=== PATIENT | male | born 1980 | race Caucasian/White ===

== ENCOUNTER 2020-01-10 08:36 | Emergency (ER) | payer SELFPAY ==
[2020-01-10 08:42] VITALS: BP 95/42; PULSE 68; RESP 18; TEMP 36.8; O2SAT 96; BMI 23.7
--- NOTE | 2020-01-10 08:54 | W.ED.BACK ---
HPI - Back Pain/Injury General: Chief Complaint: Back Pain/Injury Stated Complaint: back pain/back injury Time Seen by Provider: 01/10/20 08:38 Source: patient Mode of arrival: ambulatory Limitations: no limitations History of Present Illness: HPI Narrative: Patient is a 39-year-old male who presents to ED today with a complaint of lower back pain that began yesterday after he was carrying a heavy load of plywood and twisted while he was carrying it. He states pain does not seem to radiate down into his lower extremities. He normally does not suffer from chronic back pain. He is not having any urinary retention or bowel incontinence. MD elicited complaint: back pain Onset (ago): day(s) (yesterday) Timing: constant Severity: moderate Pain scale (0-10): 7 Location: lumbar spine Radiation: none Exacerbating factors: movement, walking, coughing/sneezing and lifting Relieving factors: none Associated symptoms: Reports no associated symptoms; Deny abdominal pain, difficulty walking, dysuria, nausea, syncope or vomiting Review of Systems Card: Denies: chest pain, palpitations, irregular heart rhythm, edema, lightheadedness, syncope, pre-syncope, dyspnea on exertion, orthopnea or leg pain with exertion Resp: Denies: dyspnea GI: Denies: abdominal pain, nausea or vomiting : Denies: flank pain, difficulty urinating or dysuria Musc: Reports: back pain; Denies: neck pain, extremity pain, extremity swelling, joint pain or joint swelling Neuro: Denies: headache(s), numbness in extremities, weakness in extremities, sensory changes or difficulty walking PFS ED PFSH: Social History Smoking and tobacco status: current every day smoker Physical Exam Const: COMMON NORMALS: patient oriented x3, no limitations, healthy appearing, alert and well nourished GENERAL APPEARANCE: in distress (appears uncomfortable ) HENMT: COMMON NORMALS: normocephalic and atraumatic HEAD & SCALP: normocephalic and atraumatic Neck/C-Spine: COMMON NORMALS: full ROM CERVICAL SPINE: No Cervical spine tenderness and No Paracervical muscle tenderness Resp: COMMON NORMALS: normal respiratory effort and clear to auscultation bilaterally AUSCULTATION: clear to auscultation bilaterally Cardio: COMMON NORMALS: regular rate and regular rhythm RATE: regular rate RHYTHM: regular rhythm Back/Pelvis: THORACIC SPINE/UPPER BACK: Yes normal to inspection and Yes thoracic ROM normal LUMBAR SPINE/LOWER BACK: Yes lumbar ROM normal, No lumbar spinal tenderness, Yes paraspinal muscle tenderness Lumbar paraspinal muscle tenderness: bilateral (mid to lower lumbar) and No paraspinal muscle spasm SACROILIAC JOINTS: Yes SI joints normal Extremity: COMMON NORMALS: normal to inspection and full ROM GENERAL: Yes normal exam except as noted Neuro: COMMON NORMALS: patient oriented x3, no focal motor deficits, no sensory deficits noted and gait normal SENSORIUM/ORIENTATION: Yes alert MOTOR EXAM: 5/5 motor strength present throughout Skin: COMMON NORMALS: no rashes or lesions noted GENERAL SKIN EXAM: no rashes or lesions noted Course Vital Signs: Vital signs: Vital Signs Temperature 98.2 F 01/10/20 08:42 Pulse Rate 68 01/10/20 08:42 Respiratory Rate 18 01/10/20 08:42 Blood Pressure 95/42 01/10/20 08:42 Pulse Oximetry 96 01/10/20 08:42 MDM - Back Pain/Injury MDM Narrative: Medical decision making narrative: pt reporting feeling much better after IM meds given here; no acute neurological deficits here to warrant emergent imaging; pt is stable for DC with PCP follow up in 1-2 wks for continued pain Discharge Plan Discharge Patient Disposition: Home, Self-Care Clinical Impression: Low back strain Qualifiers: Encounter type: initial encounter Qualified Code(s): S39.012A - Strain of muscle, fascia and tendon of lower back, initial encounter Condition: Stable Prescriptions: New cyclobenzaprine 10 mg tablet 10 mg PO TID Qty: 14 RF: 0 diclofenac sodium 50 mg tablet,delayed release (DR/EC) 50 mg PO Q12H PRN (Reason: pain) Qty: 20 RF: 0 methylprednisolone [Medrol (Vitor)] 4 mg tablets,dose pack See Rx Instructions .ROUTE .COMPLEX Qty: 21 RF: 0 Discharge Orders: Discharge Order (Routine); Ordered 01/10/20 Ordered By: Gerri Walker Discharge Diet: Usual diet Discharge Activity: Increase activity as tolerated Patient Instructions: Low Back Strain (ED) Activity Restrictions/Additional Instructions: Please follow up with primary care in 1-2 weeks for continued pain. Stand Alone Forms: Work/School Release Coding Level of Care Code ED Retail Special Event Associate for Chg Fwd Exam Comprehensive
[2020-01-10] MEDS: dexamethasone 10 mg/mL INJ 8 MG IM (09:09)
[2020-01-10] MEDS: ketorolac 60 mg/2 mL INJ IM (09:10)
[2020-01-10] MEDS: orphenadrine 30 mg/mL Inj 2 mL 60 MG IM (09:10)
[2020-01-10 09:54] VITALS: BP 104/55; PULSE 55; RESP 18; O2SAT 96
== END 2020-01-10 09:55 | disposition home or self-care (01) ==
PROVIDERS: Emergency Provider Physician Assistant; PCP Nurse Practitioner Family
DX: S39.012A Strain of muscle, fascia and tendon of lower back, initial encounter (principal); X50.0XXA Overexertion from strenuous movement or load, initial encounter; F17.210 Nicotine dependence, cigarettes, uncomplicated
CPT/HCPCS: 12345; 96372; 99281; 99283; J1100; J1885; J2360

== ENCOUNTER 2022-05-16 17:00 | Emergency (ER) | payer BC, MEDICAID, SELFPAY ==
[2022-05-16 17:33] VITALS: BP 125/73; PULSE 82; RESP 16; TEMP 36.8; O2SAT 96; BMI 23.1
--- NOTE | 2022-05-16 17:45 | XRR_ITS ---
PROCEDURE INFORMATION: Exam: XR Chest Exam date and time: 05/16/2022 5:56 PM Age: 41 years old Clinical indication: Cough TECHNIQUE: Imaging protocol: Radiologic exam of the chest. Views: 1 view. COMPARISON: CT abdomen pelvis w con* [id number] 07/29/2018 10:24 AM FINDINGS: Lungs: Scattered calcified granulomas in the right lung. No consolidation. Pleural spaces: Unremarkable. No pleural effusion. No pneumothorax. Heart/Mediastinum: Unremarkable. No cardiomegaly. Bones/joints: Unremarkable. XR/XR chest 1V portable [id number] IMPRESSION: No acute findings.
--- NOTE | 2022-05-16 18:02 | W.ED.SOB ---
HPI - SOB/Dyspnea General: Chief Complaint: Shortness of Breath/Dyspnea Stated Complaint: couching blood Time Seen by Provider: 05/16/22 17:45 History of Present Illness: HPI Narrative: Patient comes in today with complaints of persistent cough with congestion last 2 weeks.. Patient states some left lower lung discomfort. Patient also reports coughing up some blood. Patient reports diagnosed with COVID 2 weeks ago. Patient appears nontoxic. Patient appears in mild pain. Patient has a history of 2 episodes COVID and a case of pneumonia. Patient does smoke daily. Associated symptoms: Reports chest pain and hemoptysis; Deny abdominal pain or fever(s) Review of Systems Const: Denies: fever(s) Card: Reports: chest pain Resp: Reports: non-productive cough and hemoptysis GI: Denies: abdominal pain : Denies: difficulty urinating Skin/Breast: Reports: rash PFSH ED PFSH: Social History Smoking and tobacco status: current every day smoker Physical Exam Const: COMMON NORMALS: alert HENMT: COMMON NORMALS: normocephalic HEAD & SCALP: normocephalic Neck/C-Spine: COMMON NORMALS: full ROM Resp: COMMON NORMALS: normal respiratory effort AUSCULTATION: crackles Laterality: left (lower lung) Cardio: COMMON NORMALS: regular rate RATE: regular rate GI: COMMON NORMALS: non-tender Extremity: COMMON NORMALS: normal to inspection Neuro: SENSORIUM/ORIENTATION: Yes alert Skin: COMMON NORMALS: turgor normal GENERAL SKIN EXAM: turgor normal Course Vital Signs: Vital signs: Vital Signs Temperature 98.2 F 05/16/22 17:33 Pulse Rate 82 05/16/22 17:33 Respiratory Rate 16 05/16/22 17:33 Blood Pressure 125/73 05/16/22 17:33 Pulse Oximetry 96 05/16/22 17:33 Oxygen Delivery Me thod 05/16/22 17:33 MDM - SOB/Dyspnea Medical Decision Making 41-year-old male patient comes in today with cough, hemoptysis, left lower lung pain. Patient appears nontoxic. Lungs have some mild crackles in the left lower lung. Heart rates regular. Skin is warm and dry. Vital signs are normal. Differential diagnosis includes not limited to pneumonia, bronchitis, COVID-19. Chest x-ray was unremarkable. We will go ahead and treat patient for bronchitis secondary to COVID-19. This is been 2 weeks we will go ahead and cover with doxycycline 100 mg twice a day for 7 days. Patient will be started on a short course of dexamethasone along with antibiotic. Patient was also encouraged to stop smoking and to use albuterol inhaler as needed. Patient reported understanding and agreed to plan. Discharge Plan Discharge Patient Disposition: Home Clinical Impression: Acute bronchitis Condition: Stable Prescriptions: New doxycycline monohydrate 100 mg capsule 100 mg PO BID 7 Days Qty: 14 0RF dexamethasone 6 mg tablet 6 mg PO DAILY Qty: 7 0RF albuterol sulfate 90 mcg/actuation HFA aerosol inhaler 2 inh inhalation Q4H PRN (Reason: shortness of breath or wheezing) Qty: 8.5 0RF No Action cyclobenzaprine 10 mg tablet 10 mg PO TID Qty: 14 0RF diclofenac sodium 50 mg tablet,delayed release (DR/EC) 50 mg PO Q12H PRN (Reason: pain) Qty: 20 0RF Medrol (Vitor) 4 mg tablets,dose pack See Rx Instructions .ROUTE .COMPLEX Qty: 21 0RF Rx Instructions: orally per package directions Discharge Orders: Discharge ED (Routine); Ordered 05/16/22 Ordered By: Flavio Parks Patient Instructions: Acute Bronchitis (ED) Activity Restrictions/Additional Instructions: Drink plenty of water. Take antibiotics as directed. Use inhaler 2 puffs every 4 hours as needed for persistent coughing or shortness of breath. Take dexamethasone 6 mg daily for the next 7 days. Drink plenty of water with medication. Follow-up with primary care in 3 days for recheck. Return to ER for new concerns. Stand Alone Forms: Work/School Release Coding Level of Care Code ED Tentering Machine Off Bearer for Leonel Fwd Exam Comprehensive
[2022-05-16] MEDS: doxycycline 100 mg Tablet PO (18:12)
[2022-05-16] MEDS: dexamethasone 10 mg/mL INJ IM (18:16)
== END 2022-05-16 18:31 | disposition home or self-care (01) ==
PROVIDERS: Emergency Provider Nurse Practitioner Family
DX: J20.9 Acute bronchitis, unspecified (principal); F17.210 Nicotine dependence, cigarettes, uncomplicated
CPT/HCPCS: 71045; 96372; 99284; J1100

== ENCOUNTER 2022-05-24 10:26 | Emergency (ER) | payer BC, MEDICAID, SELFPAY ==
[2022-05-24 10:40] VITALS: BP 128/86; PULSE 75; RESP 20; TEMP 36.4; O2SAT 98; BMI 23.1
[2022-05-24 10:44] VITALS: BP 105/68; PULSE 78; RESP 18; TEMP 36.4; O2SAT 98
--- NOTE | 2022-05-24 11:09 | ECG_ITS ---
[facility] Test Date: 2022-05-24 Pat Name: Vineet Denton Department: Room: Gender: Male Premises Technician: : 1980 Requested By: Jaron Mcgee Order Number: [id number] Alon MD: Emily Ovalle M.D. Measurements Intervals [place] Rate: 71 P: 58 IN: 159 QRS: 87 QRSD: 82 T: 41 QT: 376 QTc: 409 Interpretive Statements SINUS RHYTHM Compared to ECG 07/29/2018 08:57:08 Sinus bradycardia no longer present Sinus arrhythmia no longer present Electronically Signed On 05-24-2022 17:10:12 CDT by Emily Ovalle M.D. [id number]
--- NOTE | 2022-05-24 11:09 | XRR_ITS ---
PROCEDURE INFORMATION: Exam: XR Chest Exam date and time: 05/24/2022 11:22 AM Age: 41 years old Clinical indication: Cough, dyspnea and shortness of breath. TECHNIQUE: Imaging protocol: Radiologic exam of the chest. Views: 1 view. COMPARISON: CR (CHEST, ) 05/16/2022 5:56 PM FINDINGS: Lungs: A calcified granuloma is noted at the right base. Mild scarring in the lung apices. No pulmonary consolidation. Pleural spaces: No pleural effusion. No pneumothorax. Heart/Mediastinum: The cardiac silhouette is unremarkable. No gross evidence of pneumomediastinum. Bones/joints: No gross fracture. XR/XR chest 1V portable [id number] IMPRESSION: No acute cardiopulmonary abnormality identified.
[2022-05-24 11:31] LABS: Basophils % 0.3 %; Eosinophils # 0.1 10^3/uL (0.0-0.8); Hemoglobin 14.8 g/dL (11.7-16.6); Lymphocytes # 1.7 10^3/uL (0.8-4.8); Lymphocytes % 24.4 %; Mean Corpuscular HGB Conc 34.4 g/dL (30.0-36.0); Mean Platelet Volume 9.7 fL (7.4-10.4); Monocytes # 0.4 10^3/uL (0.2-0.9); Monocytes % 5.5 %; Neutrophils # 4.71 10^3/uL (1.8-7.7); Neutrophils % 68.5 %; Nucleated Red Blood Cells % 0 %; Platelet Count 229 10^3/cmm (130-400); Red Blood Count 4.48 10^6/uL (4.1-5.3); Red Cell Distribution Width 12.4 % (12.1-15.1); White Blood Count 6.9 10^3/uL (4.0-10.0)
--- NOTE | 2022-05-24 11:48 | W.ED.SOB ---
HPI - SOB/Dyspnea General: Chief Complaint: Shortness of Breath/Dyspnea Stated Complaint: SOB, Chest Pain Source: patient Mode of arrival: ambulatory History of Present Illness: HPI Narrative: 41-year-old male presents emergency room complaining of shortness of breath and wheezing. He was recently diagnosed with COVID he seemed to resolve but is still having frequent cough and wheezing. No fever sweats or chills he has been on prednisone and inhalers recently ran out of inhalers and his symptoms worsen. He does smoke. MD elicited complaint: shortness of breath and cough Pertinent past history: sepsis Onset (ago): day(s) Timing: constant Severity: mild Exacerbating factors: exertion Relieving factors: rest Associated symptoms: Reports cough and fever(s); Deny abdominal pain, chest congestion, chest pain, diaphoresis, dizziness, extremity pain, hemoptysis, lightheadedness, myalgias, nausea, orthopnea, palpitations, paresthesias, polydipsia, polyuria, rash, sense of impending doom, syncope or vomiting Treatment prior to arrival: none Review of Systems Const: Reports: fever(s), chills and change in appetite; Denies: diaphoresis ENMT: Denies: throat pain, ear or mastoid pain, nasal discharge or nasal congestion Card: Denies: chest pain, palpitations, irregular heart rhythm, edema, swelling of feet/ankles, lightheadedness, syncope or orthopnea Resp: Reports: dyspnea, non-productive cough and wheezing; Denies: hemoptysis or chest congestion GI: Denies: abdominal pain, nausea or vomiting : Denies: flank pain, dysuria, urinary frequency or urinary urgency Musc: Denies: extremity pain Skin/Breast: Denies: rash or pruritus Neuro: Denies: dizziness Endo: Denies: polyuria or polydipsia PFSH ED PFSH: Social History Smoking and tobacco status: current every day smoker Physical Exam Const: GENERAL APPEARANCE: cooperative and comfortable ORIENTATION/CONSCIOUSNESS: Yes awake, Yes oriented to person, Yes oriented to place and Yes oriented to time HENMT: COMMON NORMALS: normocephalic, atraumatic and hearing grossly normal bilaterally HEAD & SCALP: normocephalic and atraumatic Resp: COMMON NORMALS: normal respiratory effort, No retractions, No use of accessory muscles and clear to auscultation bilaterally AUSCULTATION: clear to auscultation bilaterally Cardio: COMMON NORMALS: regular rate, regular rhythm and No murmurs present (Cardio) RATE: regular rate RHYTHM: regular rhythm GI: COMMON NORMALS: Soft to palpation and No hepatosplenomegaly present AUSCULTATION: Yes normoactive bowel sounds PALPATION: Yes Soft to palpation, No Tenderness to palpation present (GI), No Guarding due to palpation present (GI) and Yes No hepatosplenomegaly present Extremity: COMMON NORMALS: normal to inspection, capillary refill normal, no clubbing, cyanosis or edema, no calf tenderness and no pedal edema Neuro: SENSORIUM/ORIENTATION: Yes oriented to person, Yes oriented to place and Yes oriented to time Skin: COMMON NORMALS: no rashes or lesions noted GENERAL SKIN EXAM: no rashes or lesions noted Course Vital Signs: Vital signs: Vital Signs Temperature 97.6 F 05/24/22 10:44 Pulse Rate 63 05/24/22 13:57 Respiratory Rate 16 05/24/22 11:50 Blood Pressure 123/93 05/24/22 13:57 Pulse Oximetry 98 05/24/22 13:57 Oxygen Delivery Me thod 05/24/22 11:50 MDM - SOB/Dyspnea Medical Decision Making Labs imaging and EKG reviewed as found on the chart. Patient has not signs of acute bacterial pneumonia or evidence of PE. Will treat for postinfectious bronchospasm. Started on inhaled corticosteroid albuterol as needed and steroid taper follow-up with primary care Medical Records I reviewed the patient's medical records. Lab Data I reviewed the patient's lab results. : 05/24/22 11:22 Labs/Radiology: Radiology Impressions Chest X-Ray 05/24/22 11:09 IMPRESSION: No acute cardiopulmonary abnormality identified. Laboratory Results WBC 6.9 10^3/uL (4.0-10.0) 05/24/22 11:22 RBC 4.48 10^6/uL (4.1-5.3) 05/24/22 11:22 Hgb 14.8 g/dL (11.7-16.6) 05/24/22 11:22 Hct 43.0 % (42.0-52.0) 05/24/22 11:22 MCV 96.0 fl (80-94) H 05/24/22 11:22 MCH 33.0 pg (28.0-34.0) 05/24/22 11:22 MCHC 34.4 g/dL (30.0-36.0) 05/24/22 11:22 RDW 12.4 % (12.1-15.1) 05/24/22 11:22 Plt Count 229 10^3/cmm (130-400) 05/24/22 11:22 MPV 9.7 fL (7.4-10.4) 05/24/22 11:22 Neut % (Auto) 68.5 % 05/24/22 11:22 Lymph % (Auto) 24.4 % 05/24/22 11:22 Gilliam % (Auto) 5.5 % 05/24/22 11:22 Eos % (Auto) 1.0 % 05/24/22 11:22 Baso % (Auto) 0.3 % 05/24/22 11: Neut # (Auto) 4.71 10^3/uL (1.8-7.7) 05/24/22 11:22 Lymph # (Auto) 1.7 10^3/uL (0.8-4.8) 05/24/22 11:22 Gilliam # (Auto) 0.4 10^3/uL (0.2-0.9) 05/24/22 11:22 Eos # (Auto) 0.1 10^3/uL (0.0-0.8) 05/24/22 11:22 Baso # (Auto) 0.0 10^3/uL (0.0-0.1) 05/24/22 11: Nucleated RBC % (auto) 0 % 05/24/22 11:22 Nucleated RBCs # 0.0 /100WBC 05/24/22 11:22 Discharge Plan Discharge Patient Disposition: Home Clinical Impression: Post-infection bronchospasm Condition: Stable Prescriptions: New Advair Diskus 100-50 mcg/dose blister with device 1 inh inhalation BID Qty: 60 0RF prednisone 20 mg tablet 20 mg PO TID Qty: 15 0RF Rx Instructions: 1 p.o. 3 times daily x3 days, 1 p.o. twice daily x2 days, 1 p.o. daily x2 days albuterol sulfate 90 mcg/actuation HFA aerosol inhaler 2 inh INHALATION Q4H PRN (Reason: shortness of breath or wheezing) Qty: 18 0RF No Action cyclobenzaprine 10 mg tablet 10 mg PO TID Qty: 14 0RF diclofenac sodium 50 mg tablet,delayed release (DR/EC) 50 mg PO Q12H PRN (Reason: pain) Qty: 20 0RF Medrol (Vitor) 4 mg tablets,dose pack See Rx Instructions .ROUTE .COMPLEX Qty: 21 0RF Rx Instructions: orally per package directions dexamethasone 6 mg tablet 6 mg PO DAILY Qty: 7 0RF albuterol sulfate 90 mcg/actuation HFA aerosol inhaler 2 inh inhalation Q4H PRN (Reason: shortness of breath or wheezing) Qty: 8.5 0RF Discharge Orders: Discharge ED (Routine); Ordered 05/24/22 Ordered By: Jaron Meza Discharge Diet: Usual diet Discharge Activity: Increase activity as tolerated Patient Instructions: Opioid Safety, Pain Management Activity Restrictions/Additional Instructions: He has managed will make arrangements for you to follow-up with pulmonology. Coding Level of Care Code ED Director Enterprise Data Architecture for Leonel Fwd Exam Detailed
[2022-05-24 11:50] VITALS: PULSE 71; RESP 16; O2SAT 99
[2022-05-24] MEDS: ipratropium-albuterol 3 mL Neb INHALATION (11:57)
[2022-05-24 12:00] VITALS: PULSE 65
[2022-05-24 13:57] VITALS: BP 123/93; PULSE 63; O2SAT 98
--- NOTE | 2022-05-24 15:09 | DCPLANNER ---
Addendum entered by Liz Parks 05/25/22 14:19: logistics program manager received the following message from the [facility] regarding follow up appointment: Attempted to call patient - line just kept ringing Original Note: logistics program manager had message to schedule a follow up appointment for patient with pulmonology. logistics program manager sent patients information to the front office staff at [facility]. Patients information will be printed and reviewed. Clinic will call patient with appointment information.
== END 2022-05-24 13:59 | disposition home or self-care (01) ==
PROVIDERS: Emergency Provider Family Medicine
DX: J98.01 Acute bronchospasm (principal); F17.200 Nicotine dependence, unspecified, uncomplicated
CPT/HCPCS: 71045; 85025; 93005; 94640; 96374; 99285; J2930